=== PATIENT | female | born 1970 | race Caucasian/White ===

== ENCOUNTER 2024-07-18 10:55 | Emergency (ER) | payer OTHER ==
[~2024-07-18] VITALS: Ht 157.5 cm; Wt 68.0 kg
[2024-07-18] MEDS ORDERED: [UNRECOGNIZED DRUG - OTHER] (12:10)
== END 2024-07-18 13:15 | disposition home or self-care (01) ==
LOC: ER 10:58
DX: S52.592A Other fractures of lower end of left radius, initial encounter for closed fracture (principal); W18.39XA Other fall on same level, initial encounter; Y93.41 Activity, dancing; Y92.89 Other specified places as the place of occurrence of the external cause; Y99.9 Unspecified external cause status